=== PATIENT | female | born 1940 | race Caucasian/White ===

== ENCOUNTER 2016-07-03 04:18 | Emergency (ER) | payer MEDICARE ==
[~2016-07-03] VITALS: Ht 160 cm; Wt 57.0 kg
[2016-07-03] MEDS ORDERED: ATEN25TA PO (04:51)
[2016-07-03 05:24] LABS: HEMOGLOBIN 13.1 g/dL (11.7-16.4)
[2016-07-03] MEDS ORDERED: SODIUM CHLORIDE 0.9% 1,000ML IVBOLUS ONE (05:30)
[2016-07-03] MEDS ORDERED: SODIUM CHLORIDE FLUSH 10ML SYR IVF ONE (05:30)
[2016-07-03 05:40] LABS: BLOOD UREA NITROGEN 13 mg/dL (7-18)
[2016-07-03 05:44] LABS: ASPARTATE AMINO TRANSFERASE 28 U/L (15-37)
[2016-07-03 06:05] VITALS: BP 128/68
== END 2016-07-03 06:31 | disposition home or self-care (01) ==
LOC: ED 06:09
DX: N30.01 Acute cystitis with hematuria (principal); Z90.710 Acquired absence of both cervix and uterus; Z88.1 Allergy status to other antibiotic agents
CPT/HCPCS: 36415; 51701; 80053; 81001; 85025; 87077; 87086; 99284; J7030; 87186; P9612